=== PATIENT | female | born 1940 | race Caucasian/White ===

== ENCOUNTER 2020-07-09 07:35 | Outpatient (CLI) | payer MEDICARE, BC ==
[2020-07-09] MEDS ORDERED: ADENOSINE 60 MG/20 ML VIAL ONE (11:00)
== END 2020-07-09 07:36 | disposition home or self-care (01) ==
LOC: NM 07:35
PROVIDERS: ATTEND Internal Medicine
DX: R07.9 Chest pain, unspecified (principal); R91.8 Other nonspecific abnormal finding of lung field
CPT/HCPCS: 71046; 78452; 93017; A9500; J0153

== ENCOUNTER 2020-07-12 16:09 | Outpatient (CLI) | payer MEDICARE, BC ==
[2020-07-13 01:36] LABS: SARS-CoV-2 PCR by NAA Not Detected (NotDetected)
== END 2020-07-12 16:10 | disposition home or self-care (01) ==
LOC: LABBT 16:09
PROVIDERS: ATTEND Internal Medicine Critical Care Medicine
DX: Z01.812 Encounter for preprocedural laboratory examination (principal); J90 Pleural effusion, not elsewhere classified; Z20.822 Contact with and (suspected) exposure to COVID-19
CPT/HCPCS: U0003; U0005; 87635

== ENCOUNTER 2020-07-13 07:04 | Day surgery (SDC) | payer MEDICARE, BC ==
[2020-07-13 09:19] LABS: Pleural Fluid, Protein 4.5 g/dL
[2020-07-13 10:24] LABS: RBC Count-Automated (BF) 338 /cu.mm; WBC/Nucleated-Auto (BF) 199 uL
[2020-07-13 10:26] LABS: BF Color Yellow; Body Fluid Source Thoracentesis Fluid; Clarity Hazy (Clear); Tube # 3
[2020-07-13 10:28] LABS: BF Segmented Neutrophils 29 %; Cell Count Non Hematic 67 %; Lymphocytes 4 %
== END 2020-07-13 09:06 | disposition home or self-care (01) ==
LOC: SDC 07:04
PROVIDERS: ATTEND Internal Medicine Critical Care Medicine
PROC: 0BJQ3ZZ Inspection of Pleura, Percutaneous Approach (ICD-10-PCS; principal; 2020-07-13)
DX: J90 Pleural effusion, not elsewhere classified (principal); F03.90 Unspecified dementia, unspecified severity, without behavioral disturbance, psychotic disturbance, mood disturbance, and anxiety; E11.9 Type 2 diabetes mellitus without complications; E78.5 Hyperlipidemia, unspecified; D64.9 Anemia, unspecified; Z79.82 Long term (current) use of aspirin; Z79.84 Long term (current) use of oral hypoglycemic drugs; Z79.899 Other long term (current) drug therapy
CPT/HCPCS: 32554; 71045; 82150; 82945; 83615; 83986; 84157; 84478; 85060; 87070; 87116; 87205; 87206; 88112; 88305; 88341; 88342; 89051

== ENCOUNTER 2020-07-27 10:53 | Day surgery (SDC) | payer MEDICARE, BC ==
[2020-07-27 12:15] LABS: SARS-CoV-2 NAA Rapid Test Not Detected (NotDetected)
[2020-07-27] MEDS ORDERED: CEFAZOLIN 1 GM VIAL ONE (12:24)
[2020-07-27] MEDS ORDERED: Sodium Chloride 0.9% 100 ML ONE (12:24)
[2020-07-27 13:06] LABS: #Eosinphils 0.1 thou/uL (0.0-0.7); #Monocytes 0.7 thou/uL (0.11-0.59); #Neutrophils 8.2 thou/uL (1.40-6.50); %Basophils 0.1 % (0.0-1.0); %Lymphocytes 18.1 % (21.0-51.0); %Monocytes 6.4 % (0.0-10.0); %Neutrophils 74.4 % (42.0-75.0); Mean Corpuscular HGB CONC 33.7 g/dL (32.0-36.0); Mean Corpuscular Volume 86.1 fL (78.0-98.0); Mean Platelet Volume 7.3 fL (7.4-10.4); Platelet Count 396 thou/uL (130-400); RBC Distribution Width 11.9 % (11.5-14.5); Red Blood Cell (RBC) Count 4.12 mill/uL (4.20-5.40)
[2020-07-27 13:33] LABS: Anion Gap 16 mmol/L (10-20); BUN (Urea Nitrogen) 13 mg/dL (9.8-20.1); Calc. Creatinine Clearance 0 mL/min (70-130); Calcium 9.3 mg/dL (7.8-10.44); Carbon Dioxide 26 mmol/L (23-31); Chloride 99 mmol/L (98-107); Glucose 167 mg/dL (83-110); Potassium 5.6 mmol/L (3.5-5.1); Sodium 135 mmol/L (136-145)
[2020-07-27] MEDS ORDERED: Fentanyl 100 MCG/2 ML VIAL ONE (14:28)
[2020-07-27] MEDS ORDERED: PROPOFOL 200 MG/20 ML VIAL ONE (14:38)
[2020-07-27] MEDS ORDERED: PHENYLEPHRINE-NS 100 MCG/ML 10 ML SYRINGE ONE (14:38)
[2020-07-27] MEDS ORDERED: Lidocaine 1% PF 5 ML VIAL ONE (14:38)
== END 2020-07-27 16:45 | disposition home or self-care (01) ==
LOC: SDC 10:53
PROVIDERS: ATTEND Thoracic Surgery (Cardiothoracic Vascular Surgery)
PROC: 0W9B00Z Drainage of Left Pleural Cavity with Drainage Device, Open Approach (ICD-10-PCS; principal; 2020-07-27)
DX: C45.9 Mesothelioma, unspecified (principal); J91.0 Malignant pleural effusion; E11.9 Type 2 diabetes mellitus without complications; E78.5 Hyperlipidemia, unspecified; Z79.4 Long term (current) use of insulin; Z79.82 Long term (current) use of aspirin; Z79.899 Other long term (current) drug therapy; Z20.822 Contact with and (suspected) exposure to COVID-19
CPT/HCPCS: 32550; 80048; 85025; C1729; U0002; U0005; 36415; J0690; J2704; J3010; J3490

== ENCOUNTER 2020-07-31 10:44 | Observation (INO) | payer MEDICARE, BC ==
[~2020-07-31 10:44] MED LIST: Iopamidol-370 76% 500 ML 1 ML ONE
[2020-07-31 11:27] LABS: #Eosinphils 0.1 thou/uL (0.0-0.7); #Lymphocytes 1.2 thou/uL (1.20-3.40); #Monocytes 0.8 thou/uL (0.11-0.59); #Neutrophils 9.7 thou/uL (1.40-6.50); %Basophils 0.3 % (0.0-1.0); %Eosinophils 0.8 % (0.0-10.0); %Lymphocytes 10.2 % (21.0-51.0); %Monocytes 6.7 % (0.0-10.0); %Neutrophils 81.9 % (42.0-75.0); Hemoglobin 10.6 g/dL (12.0-16.0); Mean Corpuscular HGB CONC 33.7 g/dL (32.0-36.0); Mean Corpuscular Hemoglobin 28.7 pg (27.0-31.0); Mean Corpuscular Volume 85.2 fL (78.0-98.0); Mean Platelet Volume 7.2 fL (7.4-10.4); Platelet Count 346 thou/uL (130-400); RBC Distribution Width 11.8 % (11.5-14.5); White Blood Cell (WBC) Count 11.8 thou/uL (4.8-10.8)
[2020-07-31 12:17] LABS: ALT (SGPT) 20 U/L (8-55); AST (SGOT) 14 U/L (5-34); Albumin 2.7 g/dL (3.4-4.8); Alkaline Phosphatase 84 U/L (40-110); Anion Gap 10 mmol/L (10-20); BUN (Urea Nitrogen) 10 mg/dL (9.8-20.1); Bilirubin, Total 0.3 mg/dL (0.2-1.2); Calc. Creatinine Clearance 0 mL/min (70-130); Calcium 8.6 mg/dL (7.8-10.44); Carbon Dioxide 28 mmol/L (23-31); Chloride 97 mmol/L (98-107); Globulin 3.1 g/dL (2.4-3.5); Glucose 412 mg/dL (83-110); Magnesium 1.7 mg/dL (1.6-2.6); Potassium 4.6 mmol/L (3.5-5.1); Protein, Total 5.8 g/dL (5.8-8.1); Sodium 130 mmol/L (136-145)
[2020-07-31 12:23] LABS: Bilirubin Negative (Negative); Blood, Urine Negative (Negative); Glucose, Urine (Dipstick) >=1000 mg/dL (Negative); Ketone, Urine Negative (Negative); Leukocyte Negative (Negative); Nitrite Negative (Negative); Protein, Urine (Dipstick) Negative (Neg-Trace); Urobilinogen 0.2 mg/dL (Less than 2)
[2020-07-31 12:28] LABS: Clarity Clear (Clear)
[2020-07-31 12:37] LABS: Bacteria/HPF None Seen HPF (None Seen); RBC/HPF None Seen HPF (0-3); Squamous Epithelial None Seen HPF (0-3); WBC/HPF None Seen HPF (0-3)
[2020-07-31] MEDS ORDERED: Lantus 1000 UNITS/10 ML VIAL SC SCH (13:45)
[2020-07-31] MEDS ORDERED: Dextrose 50% Abboject 50 ML SYRINGE SLOW IVP PRN (14:39)
[2020-07-31] MEDS ORDERED: HumaLOG 300 UNITS/3 ML VIAL SC PRN (14:39)
[2020-07-31] MEDS ORDERED: Acetaminophen 325 MG TAB PO PRN (14:39)
[2020-07-31] MEDS ORDERED: Dextrose 5% in Water 1,000 ML IV PRN (14:39)
[2020-07-31] MEDS ORDERED: Ondansetron ODT 4 MG TAB PO PRN (14:39)
[2020-07-31] MEDS ORDERED: Ondansetron PF 4 MG/2 ML Vial IVP PRN (14:39)
[2020-07-31] MEDS ORDERED: Senokot S 8.6-50 MG TAB PO PRN (14:39)
[2020-07-31 15:18] LABS: Troponin I Less than 0.010 ng/mL (< 0.028)
[2020-07-31 17:48] VITALS: BMI 23.4
[2020-08-01] MEDS: HumaLOG 300 UNITS/3 ML VIAL SC PRN ×2 (05:53→12:19)
[2020-08-01 06:03] LABS: ALT (SGPT) 24 U/L (8-55); AST (SGOT) 21 U/L (5-34); Albumin 2.5 g/dL (3.4-4.8); Alkaline Phosphatase 81 U/L (40-110); Anion Gap 9 mmol/L (10-20); BUN (Urea Nitrogen) 11 mg/dL (9.8-20.1); Bilirubin, Total 0.3 mg/dL (0.2-1.2); Calc. Creatinine Clearance 64 mL/min (70-130); Calcium 8.5 mg/dL (7.8-10.44); Carbon Dioxide 29 mmol/L (23-31); Chloride 101 mmol/L (98-107); Globulin 3.2 g/dL (2.4-3.5); Glucose 165 mg/dL (83-110); Protein, Total 5.7 g/dL (5.8-8.1); Sodium 135 mmol/L (136-145)
[2020-08-01 06:59] LABS: SARS-CoV-2 PCR by NAA Not Detected (NotDetected)
[2020-08-01] MEDS ORDERED: Calcium Carbonate 600 MG + Vit D TAB PO SCH (08:00)
[2020-08-01] MEDS ORDERED: Polyethylene Glycol 3350 17 GM Packet PO SCH (09:00)
[2020-08-01] MEDS ORDERED: Enoxaparin Sodium 40 MG/0.4 ML SYRINGE SC SCH (09:00)
[2020-08-01] MEDS ORDERED: Rivastigmine 4.6mg/24 Hour PATCH TOP SCH (09:00)
[2020-08-01] MEDS ORDERED: Aspirin 81 mg Enteric Coated Tablet PO SCH (09:00)
[2020-08-01] MEDS ORDERED: Alogliptin 25 MG TAB PO SCH (09:00)
[2020-08-01 12:05] VITALS: BP 127/53; TEMP 98.4
[2020-08-01] MEDS ORDERED: Lantus 1000 UNITS/10 ML VIAL SC SCH (14:00)
[2020-08-01] MEDS ORDERED: Atorvastatin Calcium 20 MG TAB PO SCH (21:00)
== END 2020-08-01 15:29 | disposition home or self-care (01) ==
LOC: ERS 10:44 → ERHOLD 13:34 → 2SE 16:19
PROVIDERS: ADMIT Family Medicine; ATTEND Family Medicine
DX: R56.9 Unspecified convulsions (principal); E11.65 Type 2 diabetes mellitus with hyperglycemia; I95.1 Orthostatic hypotension; E78.5 Hyperlipidemia, unspecified; E03.9 Hypothyroidism, unspecified; C45.9 Mesothelioma, unspecified; D63.0 Anemia in neoplastic disease; J91.0 Malignant pleural effusion; Z23 Encounter for immunization; Z66 Do not resuscitate; Z79.1 Long term (current) use of non-steroidal anti-inflammatories (NSAID); Z79.82 Long term (current) use of aspirin; Z79.84 Long term (current) use of oral hypoglycemic drugs; Z79.899 Other long term (current) drug therapy; Z20.822 Contact with and (suspected) exposure to COVID-19
CPT/HCPCS: 51701; 70470; 71045; 80053 ×2; 81003; 82962 ×2; 83605; 83735; 84146; 84484 ×2; 85025; 90732; 93005; 94760; 96372; 99285; G0009; U0003; U0005; 36415; 36416; 90471; G0378; J1650; J1815; Q9967